=== PATIENT | male | born 1965 | race Caucasian/White ===

== ENCOUNTER 2019-12-07 00:21 | Day surgery (SDC) | payer OTHER, SELFPAY ==
[2019-12-07 06:45] VITALS: BP 162/80; PULSE 60; RESP 14; TEMP 36.6; O2SAT 100; BMI 29.3
[2019-12-07] MEDS: LACTATED RINGERS 1,000 ML 150 ML IV CONT (07:14)
--- NOTE | 2019-12-07 07:33 | WPDANESEPPF ---
Anes - Initial Pre Proc Eval Procedure: Operation Date: 12/07/19 08:00 Proposed Procedures p Screening Colonoscopy - Corwin Morse MD Date/Time: 12/07/19 07:33 Surgeon: Corwin Morse MD Pre Op Diagnosis: neoplasm screening Patient Data Age: 54 Gender: M Height: 5 ft 10 in Weight: 92.8 kg Last Vital Signs Temp 36.6 C 12/07/19 06:45 Pulse 60 12/07/19 06:45 Resp 14 12/07/19 06:45 BP 162/80 H 12/07/19 06:45 Pulse Ox 100 12/07/19 06:45 Allergies Allergy/AdvReac Type Severity Reaction Status Date / Time No Known Allergies Allergy Verified 12/07/19 07:22 Home Medications Medication Instructions Recorded Confirmed Type lansoprazole 30 mg PO DAILY 11/24/19 12/07/19 History Patient hx anesthesia problems: none Family hx anesthesia problems: none PMFSH Past Medical History Medical History GERD (gastroesophageal reflux disease) Anes - Eval Final PreProcedure Day of Procedure 12/07/19 07:33 Patient weight: overweight Heart: regular rate and rhythm Lungs: clear to auscultation Airway: Mallampati scale class 1 Neurological: alert and oriented Last oral intake: >/= 8 hours ASA classification: II Emergent: no Anesthetic plan: proceed Anesthesia type and monitoring: general GIVS and standard monitoring Informed Consent: The patient's anesthetic plan and its attendant risks and benefits were discussed with the patient/family/POA. Questions were solicited and answers provided to the satisfaction of the patient/family/POA.
--- NOTE | 2019-12-07 07:46 | P.CONGI_ITS ---
Assessment and Plan Additional Plan This is a 54-year-old white male patient seen in evaluation at the request Dr. Gaming. Patient presents for neoplasia screening colonoscopy. Patient's current weight appetite bowel movements are normal. He denies any blood in his stools. He is denies abdominal pain. His weight is stable. Family history is noncontributory. Past medical history is significant for heartburn. He denies any abdominal surgeries. Medications include Prevacid. He has no stated drug allergies. Physical exam reveals patient to be alert. Vital signs stable. HEENT exam unremarkable. Lungs are clear to auscultation and percussion. Heart is without murmur or extra sounds. Abdominal exam bowel sounds are present soft nontender with no organomegaly. Digital external rectal exam is normal. Impression 1. Neoplasia screening. This is advised because patient's age. Plan is for screening colonoscopy. GI Consult Note Consult date/time: 12/07/19 07:46 HPI: [place] is a 54 year old male [facility] Past Medical History Medical History GERD (gastroesophageal reflux disease) Meds Home Medications and Allergies Home Medications Medication Instructions Recorded Confirmed Type lansoprazole 30 mg PO DAILY 11/24/19 12/07/19 History Allergies Allergy/AdvReac Type Severity Reaction Status Date / Time No Known Allergies Allergy Verified 12/07/19 07:22 Vital Signs Vital Signs - 24 hr 12/07/19 06:45 Temperature 36.6 C Pulse Rate 60 Respiratory Rate 14 Blood Pressure 162/80 H Pulse Oximetry 100
[2019-12-07 08:11] VITALS: BP 119/74; PULSE 66; RESP 12; O2SAT 98
[2019-12-07 08:21] VITALS: BP 123/78; PULSE 55; RESP 12; O2SAT 98
[2019-12-07 08:31] VITALS: BP 139/84; PULSE 60; RESP 12; O2SAT 98
== END 2019-12-07 08:38 | disposition home or self-care (01) ==
PROVIDERS: Visit Provider Internal Medicine Gastroenterology
PROC: 0DJD8ZZ Inspection of Lower Intestinal Tract, Via Natural or Artificial Opening Endoscopic (ICD-10-PCS; CPT 45378; principal; 2019-12-07 08:00)
DX: Z12.11 Encounter for screening for malignant neoplasm of colon (principal); K64.8 Other hemorrhoids; K21.9 Gastro-esophageal reflux disease without esophagitis
CPT/HCPCS: 45378; J2704; J7120

== ENCOUNTER 2024-01-19 09:09 | Outpatient (CLI) | payer OTHER, SELFPAY ==
--- NOTE | 2024-02-02 14:42 | WPDHOMESLEEP ---
Sleep Study - Home Unattended Date of Study: 01/19/24 Ordering Provider: Uriel Denny MD Interpreting Provider: Xin Azul, DO Home Sleep Study Type: Watch PAT Height: 1.78 m Weight: 92.986 kg Body Mass Index: 29.4 Neck Circumference (inches): 15.5 Lorman: 6 Reason for Sleep Study Daytime hypersomnia Sleep History The patient is a 58 hypertension, GERD, seasonal allergies and paresthesias of both hands that had a sleep study ordered by his primary care physician for evaluation of sleep apnea. The patient frequently awakens from sleep short of breath. He constantly awakens at night with heartburn, belching or cough. He constantly snores loudly enough that others complain. He occasionally has trouble sleeping when he has a cold. He frequently wakes up gasping for air throughout the night. He frequently has breathing problems at night observed by himself or others. He denies sweating excessively at night. He denies having heart palpitations or irregular heartbeats during the night. He denies falling asleep during the day and while driving. He denies sleep paralysis, cataplexy and hypnagogic / hypnopompic hallucinations. He denies having trouble at school or work due to sleepiness. He denies feeling afraid of going to sleep. He denies having nightmares. He occasionally remembers his dreams. He occasionally has thoughts racing through his mind. He denies feeling sad, depressed or anxious. He denies having muscular tension. He denies noticing parts of his body jerk. He occasionally kicks during the night. He denies having crawling and aching feelings in his legs and denies having leg pain during the night. He denies grinding his teeth during sleep and denies awakening with morning jaw pain. He denies being bothered by pain during the day and denies being awakened by pain during the night. He denies waking up feeling stiff in the morning. He rarely wakes up with sore or achy muscles. He denies waking up with pain in the neck, spine and other joints. He goes to bed at 9:00 p.m. on weekdays and at 10:00 p.m. on the weekends. He is able to fall asleep relatively quickly. He wakes up 3 times throughout the night to urinate and get a drink. He is able to fall back asleep pretty quickly. He wakes up at 4:00 a.m. on weekdays and at 6:00 a.m. on the weekends. He typically gets 8 hours of sleep per night. He will stay in bed for 5 minutes after waking up in the morning. He currently lives with his . He denies consuming any caffeinated beverages within 2 hours of bedtime. He denies engaging in physical exercise before bedtime. He will watch television before falling asleep. He denies taking naps in the afternoon or the evening. He consumes 1 cup of caffeinated beverage per day. He consumes 5 beers per day. He denies tobacco and recreational drug use. [facility] Past Medical History Medical History Acute non-recurrent maxillary sinusitis BMI 30.0-30.9,adult BMI 31.0-31.9,adult BPH without obstruction/lower urinary tract symptoms Colon cancer screening (12/07/19) normal colonoscopy 12/07/2019 Dr. Morse with recheck in 10 years. Encounter for prostate cancer screening PSA normal at 0.86 on 12/24/2022. PSA 0.57 on 12/28/2023. Encounter for wellness examination in adult Essential hypertension GERD (gastroesophageal reflux disease) Hypersomnia Obesity (BMI 30.0-34.9) Paresthesia of both hands Seasonal allergic rhinitis ragweed Family History Family History Mother Hypertension Sibling Heart disease Social History Social History Smoking status: Never smoker Alcohol intake: current Drinks per week: 30 Alcohol use details: beer Substance use: never Substance use type: does not use Lack of Transportation: No Lack of Food
[2024-02-02 14:45] VITALS: BMI 29.4
== END 2024-01-20 07:30 | disposition home or self-care (01) ==
LOC: ANHCSM 09:09
PROVIDERS: PCP Family Medicine; Visit Provider Family Medicine
DX: G47.33 Obstructive sleep apnea (adult) (pediatric) (principal); G47.10 Hypersomnia, unspecified
CPT/HCPCS: 95800

== ENCOUNTER → 2025-10-19 09:30 | Outpatient (CLI) | payer OTHER, SELFPAY ==
--- NOTE | ~2025-10-19 | XR_ITS ---
EXAMINATION: XR foot LT min 3V, 10/19/2025 9:30 [employer] HISTORY: M72.2 - Plantar fascial fibromatosis COMPARISON: No comparisons available. Findings: No acute fracture or malalignment. No significant degenerative changes. Soft tissues unremarkable. Impression: No acute fracture or malalignment. Reviewed, dictated and finalized at location P. R [employer] Impression: No acute fracture or malalignment.
== END ==
LOC: EXPTRAD 09:31
PROVIDERS: PCP Family Medicine; Visit Provider Family Medicine
DX: M72.2 Plantar fascial fibromatosis (principal)
CPT/HCPCS: 73630